=== PATIENT | female | born 1945 | race Caucasian/White ===

== ENCOUNTER 2017-07-13 14:59 | Emergency (ER) | payer MEDICARE, BC ==
[2017-07-13 15:31] VITALS: BP 153/73
--- NOTE | 2017-07-13 15:45 | UC ---
Bite Injury/Animal HPI - HPI Summary HPI Summary: 72 year old woman with complaints of cat bite to her left hand. This happened yesterday when she grabbed her daughters cat to remove it from the other cats food. She states she washed the bite well and put antibiotic ointment on it. It is less sore today but is getting red. Denies fever or chills. The cat is up to date on immunizations. She is an indoor cat Pt states she is up to date on her tetanus - History of Current Complaint Chief Complaint: UCBiteInjury Stated Complaint: CAT BITE LEFT ARM Hx Obtained From: Patient ?: No Severity Currently: Mild Severity Initially: Severe Pain Scale Used: 0-10 Numeric - 4 Onset/Duration: Sudden Onset, Lasting Days - 1 Type of Bite: Animal - daughters indoor cat that is up to date on her immunizations Has Animal Been Immunized?: Yes Character: Puncture Aggravating Factor(s): Other - closing fist Alleviating Factor(s): Rest Associated Signs And Symptoms: Positive: Erythema, Swelling. Negative: Fever, Drainage, Lymphadenopathy, Numbness/Tingling, Limited ROM Hx of Bite: Provoked by: - pt removing it from the food bowl Animal Available for Observation: Yes Animal Control Notified: Yes - Risk Factors Infection/Sepsis Risk Factors: Delay in Initial Treatment - x 24 hours - Allergies/Home Medications Allergies/Adverse Reactions: Allergies Allergy/AdvReac Type Severity Reaction Status Date / Time No Known Allergies Allergy Verified 07/13/17 15:32 PMH/Surg Hx/FS Hx/Imm Hx Previously Healthy: Yes - Surgical History Surgical History: Yes Surgery Procedure, Year, and Place: ENDOMETRIAL SX. Right wrist ORIF & Bone graft - Family History Known Family History: Positive: Cardiac Disease, Hypertension - Social History Occupation: Retired Lives: Alone Alcohol Use: None Substance Use Type: None Smoking Status (MU): Former Smoker When Did the Patient Quit Smoking/Using Tobacco: 25 YRS AGO - Immunization History Vaccination Up to Date: Yes Review of Systems Constitutional: Negative Skin: Other - cat bite, 3 puncture over dorsal left hand Eyes: Negative ENT: Negative Respiratory: Negative Cardiovascular: Negative Gastrointestinal: Negative Genitourinary: Negative Motor: Negative Neurovascular: Negative Musculoskeletal: Arthralgia - left hand Neurological: Negative Psychological: Negative Is Patient Immunocompromised?: No All Other Systems Reviewed And Are Negative: Yes Physical Exam Triage Information Reviewed: Yes Appearance: Well-Appearing, Well-Nourished, Pain Distress - mild grimace with taking off dressing Vital Signs: Initial Vital Signs Temp 98.5 F 07/13/17 15:27 Pulse 92 07/13/17 15:27 Resp 14 07/13/17 15:27 BP 153/73 07/13/17 15:27 Vital Signs Reviewed: Yes Eyes: Positive: Conjunctiva Clear. Negative: Discharge ENT: Positive: Hearing grossly normal. 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 Area over dorsal hand with erythema and mild edema. good radial and ulnar pulses. good cap refill. good sensation to light touch over left hand. Negative: rashes Bite Injury Course/Dx - Differential Dx/Diagnosis Differential Diagnosis/HQI/PQRI: Cellulitis, Puncture Provider Diagnoses: Cat bite left hand. Cellulits left hand Discharge - Discharge Plan Condition: Stable Disposition: HOME Prescriptions: Amoxicillin/Clavulanate TAB* [Augmentin TAB 875*] 875 mg PO BID #20 tab Patient Education Materials: Animal Bite (ED), Amoxicillin/Clavulanate Potassium (By mouth) Referrals: Elaine Izaguirre MD [Primary Care Provider] - 7 Days (or sooner if symptoms are not improving or are get worse)
== END 2017-07-13 16:21 | disposition home or self-care (01) ==
LOC: UCCORT 14:59
DX: S61.432A Puncture wound without foreign body of left hand, initial encounter (principal); L03.114 Cellulitis of left upper limb; W55.01XA Bitten by cat, initial encounter; Y93.89 Activity, other specified; Y92.9 Unspecified place or not applicable; Z87.891 Personal history of nicotine dependence
CPT/HCPCS: 99212; G0463

== ENCOUNTER 2017-10-08 17:23 | Emergency (ER) | payer MEDICARE, BC ==
[2017-10-08 19:15] VITALS: BP 162/67
[2017-10-08] MEDS ORDERED: Amoxicillin PO (*) 500 MG CAP PO ONE (21:12)
--- NOTE | 2017-10-08 21:12 | UC ---
Ear Complaint HPI - HPI Summary HPI Summary: Pt presents with right ear pain x 2 days. No fevers, chills + fatigue Ear feels full and popping muffled hearing no n/v/d No rash no drainage mild sinus congestion and PND no sore throat no analgesia taken no dental pain not immunocompromised no analgesia Pt's medications reviewed this visit - History of Current Complaint Chief Complaint: UCGeneralIllness Stated Complaint: R EAR COMPLAINT, CONGESTION Time Seen by Provider: 10/08/17 20:57 Hx Obtained From: Patient Onset/Duration: Gradual Onset Severity Initially: Mild Severity Currently: Moderate Pain Intensity: 6 Pain Scale Used: 0-10 Numeric Aggravating Factors: Nothing Alleviating Factors: Nothing - Allergies/Home Medications Allergies/Adverse Reactions: Allergies Allergy/AdvReac Type Severity Reaction Status Date / Time No Known Allergies Allergy Verified 10/08/17 19:06 PMH/Surg Hx/FS Hx/Imm Hx Previously Healthy: Yes - Surgical History Surgical History: Yes Surgery Procedure, Year, and Place: ENDOMETRIAL SX. Right wrist ORIF & Bone graft. THYROID ASPIRATION FOR 2 NODULES--NEGATIVE RESULTS. - Family History Known Family History: Positive: Cardiac Disease, Hypertension - Social History Occupation: Retired Lives: With Family Alcohol Use: None Substance Use Type: None Smoking Status (MU): Former Smoker When Did the Patient Quit Smoking/Using Tobacco: 1985 - Immunization History Vaccination Up to Date: Yes Review of Systems Constitutional: Fatigue ENT: Ear Ache, Nasal Discharge Respiratory: Negative Cardiovascular: Negative All Other Systems Reviewed And Are Negative: Yes Physical Exam Triage Information Reviewed: Yes Appearance: Well-Appearing, No Pain Distress, Well-Nourished Vital Signs: Initial Vital Signs Temp 100.3 F 10/08/17 19:07 Pulse 87 10/08/17 19:07 Resp 16 10/08/17 19:07 BP 162/67 10/08/17 19:07 Pulse Ox 97 10/08/17 19:07 Eye Exam: Normal Eyes: Positive: Conjunctiva Clear ENT: Positive: Hearing grossly normal, Pharynx normal, Nasal congestion, TM bulging, TM red, Other - right TM + fluid, erythema, buldge. No mastoid pain. left TM wnl turbinates inflammed + PND uvual midline no exudate, no erythema Dental Exam: Normal Neck exam: Normal Neck: Positive: Supple, Nontender, No Lymphadenopathy Respiratory Exam: Normal Respiratory: Positive: Chest non-tender, Lungs clear, Normal breath sounds Cardiovascular Exam: Normal Cardiovascular: Positive: RRR, No Murmur Abdominal Exam: Normal Abdomen Description: Positive: Nontender, No Organomegaly Bowel Sounds: Positive: Present Musculoskeletal Exam: Normal Neurological Exam: Normal Neurological: Positive: Alert Psychological Exam: Normal Psychological: Positive: Normal Response To Family Skin Exam: Normal Ear Complaint Course/Dx - Course Course Of Treatment: Pt presents with right ear pain progessive x 2 days and fatigue. On exam VSS, right OM. Amox. decongestant. motrin/apap - Differential Dx/Diagnosis Provider Diagnoses: otitis media Discharge - Discharge Plan Condition: Stable Disposition: HOME Prescriptions: Amoxicillin PO (*) [Amoxicillin 875 MG (*)] 875 mg PO BID #19 tab Patient Education Materials: Ear Infection (ED) Referrals: Elaine Izaguirre MD [Primary Care Provider] - Additional Instructions: - stay well hydrated. Drink plenty of non-alcoholic, non-caffinated beverages - take antibiotics as prescribed until gone - Okay to alternate ibuprofen (Advil, Motrin) 400mg and tylenol every 3 hours for pain. Take with food. Do NOT take for more than 4-5 days - Contact your doctor tomorrow to schedule a follow-up appointment next week. Contact your doctor or return with questions or concerns
[2017-10-08] MEDS ORDERED: Amoxicillin PO (*) 250 MG CAP PO ONE (21:13)
== END 2017-10-08 21:20 | disposition home or self-care (01) ==
LOC: UCCORT 17:23
DX: H66.91 Otitis media, unspecified, right ear (principal); Z87.891 Personal history of nicotine dependence
CPT/HCPCS: 99212; A9270-GY; G0463

== ENCOUNTER 2018-09-03 08:36 | Day surgery (SDC) | payer MEDICARE, BC ==
[~2018-09-03 08:36] MED LIST: Acetaminophen TAB* 325 MG PO PRN; Buffered Lidocaine 0.9% SYRIN* 5 ML/SYR SYRINGE INTRADERM ONE
[2018-09-03] MEDS ORDERED: Midazolam* 1 MG/ML 2 ML VIAL (2 MG) ONE (11:06)
[2018-09-03] MEDS ORDERED: fentaNYL* 50 MCG/ML 2 ML VIAL (100 MCG VIAL) ONE (11:06)
[2018-09-03 12:00] VITALS: BP 155/77
--- NOTE | 2018-09-03 12:27 | OP ---
OPERATIVE NOTE: DATE OF OPERATION: 09/03/18 DATE OF : 43 SURGEON: Dima Garrison M.D. PREOPERATIVE DIAGNOSIS: Cataract, left eye. POSTOPERATIVE DIAGNOSIS: Cataract, left eye. OPERATIVE PROCEDURE: Extracapsular cataract extraction with intraocular lens implant left eye. PROCEDURE: The patient was brought to the operating room after being given 1/2% Alcaine with epineph rine drops in the preoperative area. The eye was prepped and draped in the usual sterile fashion. S terile drape and eyelid speculum were placed. Again, topical 1/2% Alcaine with epinephrine was given . A paracentesis incision was made at the 3 o'clock position with the No.75 blade. Clear cornea inc ision 2.2 x 2.2-mm was created at the 6 o'clock position starting at the anterior limbus using the 2. 2-mm keratome. The anterior chamber was irrigated with 0.4 mL of 1% non-preservative intracameral li docaine and filled with DisCoVisc. A capsulorrhexis was completed using the cystotome and the Utrata forceps. Hydrodissection was performed with balanced salt solution. The lens nucleus was removed wi th the Phacoemulsification handpiece without incident. Cortex was removed with the irrigation-aspira tion handpiece. The capsular bag was re-inflated using DisCoVisc and an [id number] 20.5 implant was inse rted with the shooter, oriented to the 84 degree meridian. The horizontal reference varela were made with the patient in the seated position in the preoperative area. The irrigation-aspiration handpiec e was used to remove all residual DisCoVisc. The eye was refilled with balanced salt solution and th e wound checked and found to be watertight. Topical Maxitrol drops were given. [id number]/[facility] #: [id number]
[2018-09-03] MEDS ORDERED: Lidocaine 1%* 5 ML VIAL ONE (12:53)
[2018-09-03] MEDS ORDERED: Proparacaine 0.5% OPHTH.SOL* 15 ML BTL ONE (12:53)
[2018-09-03] MEDS ORDERED: Cyclopentolate 1% OPTH.SOL* 2 ML BTL ONE (12:53)
[2018-09-03] MEDS ORDERED: acetaZOLAMIDE TAB* 250 MG ONE (12:53)
[2018-09-03] MEDS ORDERED: Neomycin/Polymy/Dex OPTH.SUSP* MAXITROL 0.1% 5 ML ONE (12:53)
[2018-09-03] MEDS ORDERED: Ketorolac 0.5% OPHTH (NF) 0.5 % 5 ML BTL ONE (12:53)
[2018-09-03] MEDS ORDERED: Povidone Iodine 5% OPTH* 30 ML BTL ONE (12:53)
[2018-09-03] MEDS ORDERED: Lidocaine 2% EPI 1:200000 MPF*10-20 ML VIAL ONE (12:53)
== END 2018-09-03 12:13 | disposition home or self-care (01) ==
LOC: OREAST 08:36
PROVIDERS: ATTEND Specialist
DX: H25.12 Age-related nuclear cataract, left eye (principal); Z85.42 Personal history of malignant neoplasm of other parts of uterus; Z87.891 Personal history of nicotine dependence
CPT/HCPCS: A9270-GY; J2250; J3010; V2787

== ENCOUNTER 2018-09-10 08:27 | Day surgery (SDC) | payer MEDICARE, BC ==
[~2018-09-10 08:27] MED LIST changes: +Midazolam* 1 MG/ML 2 ML VIAL (2 MG) ONE; +fentaNYL* 50 MCG/ML 2 ML VIAL (100 MCG VIAL) ONE
[2018-09-10] MEDS ORDERED: Lidocaine 2% EPI 1:200000 MPF*10-20 ML VIAL ONE (08:42)
[2018-09-10] MEDS ORDERED: Ketorolac 0.5% OPHTH (NF) 0.5 % 5 ML BTL ONE (08:42)
[2018-09-10] MEDS ORDERED: Proparacaine 0.5% OPHTH.SOL* 15 ML BTL ONE (08:42)
[2018-09-10] MEDS ORDERED: Neomycin/Polymy/Dex OPTH.SUSP* MAXITROL 0.1% 5 ML ONE (08:42)
[2018-09-10] MEDS ORDERED: Povidone Iodine 5% OPTH* 30 ML BTL ONE (08:42)
[2018-09-10] MEDS ORDERED: acetaZOLAMIDE TAB* 250 MG ONE (08:42)
[2018-09-10] MEDS ORDERED: Lidocaine 1%* 5 ML VIAL ONE (08:42)
[2018-09-10] MEDS ORDERED: Cyclopentolate 1% OPTH.SOL* 2 ML BTL ONE (08:42)
[2018-09-10 11:19] VITALS: BP 165/74
--- NOTE | 2018-09-10 19:52 | OP ---
DATE OF OPERATION: 09/10/18 - [facility] DATE OF : 43 SURGEON: Dima Garrison MD. PREOPERATIVE DIAGNOSIS: Cataract, right eye. POSTOPERATIVE DIAGNOSIS: Cataract, right eye. OPERATIVE PROCEDURE: Extracapsular cataract extraction with intraocular lens implant, right eye. DESCRIPTION OF PROCEDURE: The patient was brought to the operating room after being given 1/2% Alcaine with epinephrine drops in the preoperative area. The eye was prepped and draped in the usual sterile fashion. Sterile drape and eyelid speculum were placed. Again, topical 1/2% Alcaine with epinephrine was given. A paracentesis incision was made at the 9 o'clock position with the No.75 blade. Clear cornea incision 2.2 x 2.2-mm was created at the 12 o'clock position starting at the anterior limbus using the 2.2-mm keratome. The anterior chamber was irrigated with 0.4 mL of 1% non-preservative intracameral lidocaine and filled with DisCoVisc. A capsulorrhexis was completed using the cystotome and the Utrata forceps. Hydrodissection was performed with balanced salt solution. The lens nucleus was removed with the Phacoemulsification handpiece without incident. Cortex was removed with the irrigation-aspiration handpiece. The capsular bag was re-inflated using DisCoVisc and an [id number] 20 implant was inserted with the shooter and oriented to the 101-degree meridian. Horizontal reference varela were made with the patient in the seated position in the preoperative area. The irrigation-aspiration handpiece was used to remove all residual DisCoVisc. The eye was refilled with balanced salt solution and the wound checked and found to be watertight. Topical Maxitrol drops were given. [id number]/[facility] #: [id number] MTDD
== END 2018-09-10 11:23 | disposition home or self-care (01) ==
LOC: OREAST 08:27
PROVIDERS: ATTEND Specialist
DX: H25.11 Age-related nuclear cataract, right eye (principal); M81.0 Age-related osteoporosis without current pathological fracture; K21.9 Gastro-esophageal reflux disease without esophagitis; Z85.42 Personal history of malignant neoplasm of other parts of uterus; F32.9 Major depressive disorder, single episode, unspecified
CPT/HCPCS: A9270-GY; J2250; J3010; V2787